=== PATIENT | female | born 1970 | race Caucasian/White ===

== ENCOUNTER 2017-03-18 21:00 | Emergency (ER) | payer MEDICAID ==
[~2017-03-18] VITALS: Ht 162.6 cm; Wt 80.7 kg
[2017-03-18 22:16] LABS: BASOPHIL % 0.5 % (0-2); PLATELET COUNT 205 x10^3mcL (130-400)
[2017-03-18 22:18] LABS: CARBON DIOXIDE 25.1 mmol/L (21-32); CHLORIDE SERUM 103 mmol/L (98-107); CREATININE SERUM 0.8 mg/dL (0.6-1.0); GFR1 > 60 mL/min; GLUCOSE SERUM 120 mg/dL (74-106); POTASSIUM SERUM 3.5 mmol/L (3.5-5.1); SODIUM SERUM 141 mmol/L (136-145)
[2017-03-18 22:23] LABS: RED CELL DISTRIBUTION WIDTH 22.8 % (11.5-14.5)
[2017-03-18 22:35] LABS: ALBUMIN 3.9 g/dL (3.4-5.0); TOTAL PROTEIN, SERUM 7.5 g/dL (6.4-8.2)
[2017-03-18 22:36] LABS: ALKALINE PHOSPHATASE 30 U/L (46-116); ALT/SGPT 49 U/L (14-59); AMYLASE 21 U/L (25-115); AST/SGOT 30 U/L (15-37); BILIRUBIN TOTAL 0.2 mg/dL (0.20-1.00); LIPASE 73 IU/L (73-393)
[2017-03-18 23:12] LABS: ovalocyte/elliptocyte 1+; rbc morphology (normal/abnorm) ABNORMAL (NORMAL)
[2017-03-19 00:18] VITALS: BP 143/71
[2017-03-19 00:50] LABS: UA SPECIFIC GRAVITY >=1.030 (1.005-1.035); microscopic required? YES; urine erythrocyte 2+ (NEGATIVE)
[2017-03-20] MEDS ORDERED: ZESTRIL5 MG (05:17)
[2017-03-20] MEDS ORDERED: FERROUS SULFAT325 M2 PO (14:14)
== END 2017-03-19 00:18 | disposition home or self-care (01) ==
LOC: ED 21:00
PROVIDERS: Emergency Medicine
DX: R10.13 Epigastric pain (principal); I10 Essential (primary) hypertension; M79.605 Pain in left leg; M79.604 Pain in right leg; R11.2 Nausea with vomiting, unspecified; R50.9 Fever, unspecified; R05 Cough; R51 Headache
CPT/HCPCS: 83880; 87804; J1885; J2270; J2405; Q0092

== ENCOUNTER 2017-03-20 03:31 | Inpatient (IN) | payer MEDICAID ==
[~2017-03-20] VITALS: Ht 165.1 cm; Wt 82.6 kg
[2017-03-20 04:13] LABS: BASOPHIL % 0.4 % (0-2)
[2017-03-20 04:18] LABS: PLATELET COUNT 115 x10^3mcL (130-400); RED CELL DISTRIBUTION WIDTH 21.6 % (11.5-14.5)
[2017-03-20 04:22] LABS: CALCIUM 8.6 mg/dL (8.5-10.1); CHLORIDE SERUM 105 mmol/L (98-107); CREATININE SERUM 0.7 mg/dL (0.6-1.0); GFR1 > 60 mL/min; GLUCOSE SERUM 129 mg/dL (74-106); POTASSIUM SERUM 3.6 mmol/L (3.5-5.1); SODIUM SERUM 140 mmol/L (136-145)
[2017-03-20 04:27] LABS: ALBUMIN 3.5 g/dL (3.4-5.0); ALKALINE PHOSPHATASE 63 U/L (46-116); ALT/SGPT 48 U/L (14-59); AMYLASE 25 U/L (25-115); AST/SGOT 28 U/L (15-37); BILIRUBIN TOTAL 0.3 mg/dL (0.20-1.00); LIPASE 95 IU/L (73-393); TOTAL PROTEIN, SERUM 7.1 g/dL (6.4-8.2)
[2017-03-20 04:33] LABS: ovalocyte/elliptocyte 1+; rbc morphology (normal/abnorm) ABNORMAL (NORMAL)
[2017-03-20] MEDS ORDERED: ZESTRIL5 MG (05:17)
[2017-03-20 07:05] LABS: PHOSPHOROUS 2.6 mg/dL (2.5-4.9)
[2017-03-20 07:13] LABS: T3 TOTAL 1.21 ng/mL
[2017-03-20 07:17] LABS: FREE T4 1.02 ng/dL (0.76-1.46); FREE THYROXINE INDEX 2.4 ug/dL (1.4-4.5); T4(THYROXINE) 7.9 ug/dL (4.7-13.3)
[2017-03-20 08:17] LABS: AMPHETAMINE QUAL UR NONE DETECTED (NEG <=1000)
[2017-03-20 09:16] VITALS: BP 143/69
[2017-03-20 11:20] VITALS: BP 146/72
[2017-03-20 12:31] VITALS: BP 141/69
[2017-03-20 13:03] LABS: UA SPECIFIC GRAVITY 1.025 (1.005-1.035); microscopic required? YES; urine erythrocyte NEGATIVE (NEGATIVE)
[2017-03-20] MEDS ORDERED: FERROUS SULFAT325 M2 PO (14:14)
[2017-03-20 17:11] VITALS: BP 158/78
[2017-03-20 22:13] VITALS: BP 150/79
[2017-03-21 05:51] VITALS: BP 152/70
[2017-03-21 06:08] LABS: BASOPHIL % 0.4 % (0-2)
[2017-03-21 06:35] LABS: CALCIUM 8.5 mg/dL (8.5-10.1); CARBON DIOXIDE 28.5 mmol/L (21-32); CHLORIDE SERUM 105 mmol/L (98-107); CREATININE SERUM 0.5 mg/dL (0.6-1.0); GFR1 > 60 mL/min; GLUCOSE SERUM 108 mg/dL (74-106); POTASSIUM SERUM 3.1 mmol/L (3.5-5.1); SODIUM SERUM 142 mmol/L (136-145)
[2017-03-21 08:00] LABS: PLATELET COUNT 58 x10^3mcL (130-400); RED CELL DISTRIBUTION WIDTH 21.4 % (11.5-14.5)
[2017-03-21 09:37] VITALS: BP 118/76
[2017-03-21 11:20] VITALS: Ht 165.1 cm; Wt 82.6 kg
[2017-03-21] MEDS ORDERED: RANITIDINE HYD PO (12:41)
[2017-03-21 12:50] VITALS: BP 162/78
[2017-03-21 13:09] VITALS: BP 162/78
[2017-03-21] MEDS ORDERED: AMITRIPTYLINE H25 M1 PO ×2 (13:21→13:22)
[2017-03-21 17:07] VITALS: BP 156/78
[2017-03-21] MEDS ORDERED: CARAFATE1 GM/10 ML PO (18:15)
== END 2017-03-21 18:15 | disposition home or self-care (01) | DRG 241 ==
LOC: ED 03:31 → DU 05:46
PROVIDERS: Emergency Medicine; Family Medicine; Internal Medicine Gastroenterology
PROC: 0DB78ZX Excision of Stomach, Pylorus, Via Natural or Artificial Opening Endoscopic, Diagnostic (ICD-10-PCS; principal; 2017-03-21 08:00)
PROC: 0DBH8ZX Excision of Cecum, Via Natural or Artificial Opening Endoscopic, Diagnostic (ICD-10-PCS; 2017-03-21 08:00)
DX: K29.70 Gastritis, unspecified, without bleeding (principal); N17.0 Acute kidney failure with tubular necrosis; K20.9 Esophagitis, unspecified; E78.5 Hyperlipidemia, unspecified; D50.9 Iron deficiency anemia, unspecified; Z88.8 Allergy status to other drugs, medicaments and biological substances; I10 Essential (primary) hypertension; D25.9 Leiomyoma of uterus, unspecified; N93.9 Abnormal uterine and vaginal bleeding, unspecified
CPT/HCPCS: 43235; 45378; 83880; 84439; J1200; J1610; J2250; J2270; J2310; J2405; J3010; J3490; J7030; Q0092; Q0169

== ENCOUNTER 2017-04-10 15:40 | Emergency (ER) | payer MEDICAID ==
[~2017-04-10] VITALS: Ht 162.6 cm; Wt 79.4 kg
[~2017-04-10 15:40] MED LIST: AMITRIPTYLINE H25 M1 PO; CARAFATE1 GM/10 ML PO; FERROUS SULFAT325 M2 PO; RANITIDINE HYD PO; ZESTRIL5 MG
[2017-04-10 17:19] LABS: BASOPHIL % 0.4 % (0-2); PLATELET COUNT 175 x10^3mcL (130-400); RED CELL DISTRIBUTION WIDTH 14.3 % (11.5-14.5)
[2017-04-10 17:34] LABS: microscopic required? YES; urine erythrocyte 2+ (NEGATIVE)
[2017-04-10 18:55] VITALS: BP 144/84
== END 2017-04-10 18:56 | disposition home or self-care (01) ==
LOC: ED 15:40
PROVIDERS: Emergency Medicine
DX: N93.9 Abnormal uterine and vaginal bleeding, unspecified (principal); N93.8 Other specified abnormal uterine and vaginal bleeding; D25.9 Leiomyoma of uterus, unspecified; I10 Essential (primary) hypertension; Z88.5 Allergy status to narcotic agent; Z88.6 Allergy status to analgesic agent
CPT/HCPCS: J1885

== ENCOUNTER 2017-07-31 17:50 | Emergency (ER) | payer MEDICAID ==
[~2017-07-31] VITALS: Ht 162.6 cm; Wt 81.3 kg
[2017-07-31 18:10] VITALS: BP 163/76; Ht 162.6 cm; Wt 81.3 kg
== END 2017-07-31 18:50 | disposition left against medical advice (07) ==
LOC: ED 17:50
DX: Z53.21 Procedure and treatment not carried out due to patient leaving prior to being seen by health care provider (principal)

== ENCOUNTER 2017-08-01 15:19 | Emergency (ER) | payer MEDICAID ==
[~2017-08-01] VITALS: Ht 162.6 cm; Wt 80.3 kg
[2017-08-01 15:39] VITALS: BP 166/97; Ht 162.6 cm; Wt 80.3 kg
== END 2017-08-01 16:12 | disposition home or self-care (01) ==
LOC: ED 15:19
DX: H60.8X2 Other otitis externa, left ear (principal); G50.0 Trigeminal neuralgia; I10 Essential (primary) hypertension; Z88.6 Allergy status to analgesic agent; Z88.5 Allergy status to narcotic agent

== ENCOUNTER 2018-05-19 17:09 | Inpatient (IN) | payer MEDICAID ==
[~2018-05-19] VITALS: Ht 167.6 cm; Wt 81.2 kg
[~2018-05-19 17:09] MED LIST changes: -ZESTRIL5 MG
[2018-05-19 17:14] VITALS: Ht 167.6 cm; Wt 81.2 kg
[2018-05-19 17:52] LABS: BASOPHIL % 0.5 % (0-2); PLATELET COUNT 268 x10^3mcL (130-400)
[2018-05-19 17:54] LABS: RED CELL DISTRIBUTION WIDTH 18.6 % (11.5-14.5)
[2018-05-19 18:01] LABS: CALCIUM 9.1 mg/dL (8.5-10.1); CARBON DIOXIDE 27.5 mmol/L (21-32); CHLORIDE SERUM 99 mmol/L (98-107); CREATININE SERUM 0.7 mg/dL (0.6-1.0); GFR1 > 60 mL/min; GLUCOSE SERUM 134 mg/dL (74-106); POTASSIUM SERUM 3.7 mmol/L (3.5-5.1); SODIUM SERUM 136 mmol/L (136-145)
[2018-05-19 18:06] LABS: ALBUMIN 3.7 g/dL (3.4-5.0); ALKALINE PHOSPHATASE 64 U/L (46-116); ALT/SGPT 49 U/L (14-59); AST/SGOT 34 U/L (15-37); BILIRUBIN TOTAL 0.38 mg/dL (0.20-1.00); TOTAL PROTEIN, SERUM 7.7 g/dL (6.4-8.2)
[2018-05-19 18:28] LABS: rbc morphology (normal/abnorm) ABNORMAL (NORMAL)
[2018-05-19 18:30] LABS: ovalocyte/elliptocyte 1+
[2018-05-19 18:55] LABS: UA SPECIFIC GRAVITY 1.025 (1.005-1.035); microscopic required? YES; urine erythrocyte 3+ (NEGATIVE)
[2018-05-19 18:56] LABS: MAGNESIUM 1.8 mg/dL (1.8-2.4); PHOSPHOROUS 2.2 mg/dL (2.5-4.9)
[2018-05-19 19:03] LABS: AMPHETAMINE QUAL UR NONE DETECTED (See below)
[2018-05-19 19:04] LABS: T3 TOTAL 1.12 ng/mL
[2018-05-19 19:07] LABS: FREE T4 1.02 ng/dL (0.76-1.46); FREE THYROXINE INDEX 3.4 ug/dL (1.4-4.5); T4(THYROXINE) 9.5 ug/dL (4.7-13.3)
[2018-05-19 19:44] VITALS: BP 135/58
[2018-05-20 05:47] VITALS: BP 120/52
[2018-05-20 06:39] LABS: BASOPHIL % 0.7 % (0-2); PLATELET COUNT 238 x10^3mcL (130-400)
[2018-05-20 07:22] VITALS: BP 119/52
[2018-05-20 07:28] LABS: CALCIUM 8.6 mg/dL (8.5-10.1); CHLORIDE SERUM 104 mmol/L (98-107); CREATININE SERUM 0.6 mg/dL (0.6-1.0); GFR1 > 60 mL/min; GLUCOSE SERUM 97 mg/dL (74-106); MAGNESIUM 2.1 mg/dL (1.8-2.4); POTASSIUM SERUM 4.3 mmol/L (3.5-5.1); SODIUM SERUM 140 mmol/L (136-145)
[2018-05-20 12:35] VITALS: BP 108/45
[2018-05-20 14:01] VITALS: BP 170/61
[2018-05-20 15:12] VITALS: BP 137/71
[2018-05-20 21:28] VITALS: BP 133/69
[2018-05-21 06:02] VITALS: BP 114/50
[2018-05-21 06:24] LABS: BASOPHIL % 0.6 % (0-2); PLATELET COUNT 156 x10^3mcL (130-400)
[2018-05-21 06:53] LABS: RED CELL DISTRIBUTION WIDTH 18.7 % (11.5-14.5)
[2018-05-21 06:54] LABS: rbc morphology (normal/abnorm) ABNORMAL (NORMAL)
[2018-05-21 06:56] LABS: CALCIUM 8.5 mg/dL (8.5-10.1); CARBON DIOXIDE 27.7 mmol/L (21-32); CHLORIDE SERUM 106 mmol/L (98-107); CREATININE SERUM 0.5 mg/dL (0.6-1.0); GFR1 > 60 mL/min; GLUCOSE SERUM 96 mg/dL (74-106); PHOSPHOROUS 3.1 mg/dL (2.5-4.9); POTASSIUM SERUM 3.9 mmol/L (3.5-5.1); SODIUM SERUM 142 mmol/L (136-145)
[2018-05-21 20:22] VITALS: BP 141/67
[2018-05-22 05:15] VITALS: BP 142/69
[2018-05-22 13:32] VITALS: BP 158/77
[2018-05-22] MEDS ORDERED: ZES20 PO (13:49)
[2018-05-22 17:22] VITALS: BP 181/85
[2018-05-22 21:16] VITALS: BP 139/69
[2018-05-23 06:02] VITALS: BP 152/77
[2018-05-23 06:26] LABS: PLATELET COUNT 145 x10^3mcL (130-400)
[2018-05-23 06:40] LABS: CALCIUM 8.3 mg/dL (8.5-10.1); CARBON DIOXIDE 29.2 mmol/L (21-32); CHLORIDE SERUM 105 mmol/L (98-107); CREATININE SERUM 0.6 mg/dL (0.6-1.0); GFR1 > 60 mL/min; GLUCOSE SERUM 94 mg/dL (74-106); POTASSIUM SERUM 3.8 mmol/L (3.5-5.1); SODIUM SERUM 140 mmol/L (136-145)
[2018-05-23 06:49] LABS: RED CELL DISTRIBUTION WIDTH 18.3 % (11.5-14.5)
[2018-05-23 09:08] VITALS: BP 171/101
[2018-05-23 10:13] VITALS: BP 154/84
[2018-05-23 13:09] VITALS: BP 148/79
[2018-05-23 14:09] VITALS: BP 148/79
[2018-05-23] MEDS ORDERED: ZESTRIL5 MG (14:22)
== END 2018-05-23 14:49 | disposition home or self-care (01) | DRG 517 ==
LOC: ED 17:09 → DU 18:18
PROVIDERS: Emergency Medicine; Internal Medicine; Obstetrics & Gynecology; ADMIT Family Medicine
PROC: 0UDB7ZX Extraction of Endometrium, Via Natural or Artificial Opening, Diagnostic (ICD-10-PCS; principal; 2018-05-22 07:30)
DX: N92.0 Excessive and frequent menstruation with regular cycle (principal); G93.41 Metabolic encephalopathy; G43.909 Migraine, unspecified, not intractable, without status migrainosus; D25.0 Submucous leiomyoma of uterus; D50.0 Iron deficiency anemia secondary to blood loss (chronic); E83.39 Other disorders of phosphorus metabolism; K29.70 Gastritis, unspecified, without bleeding; E78.5 Hyperlipidemia, unspecified; F41.9 Anxiety disorder, unspecified; I10 Essential (primary) hypertension; D72.829 Elevated white blood cell count, unspecified; Z68.30 Body mass index [BMI] 30.0-30.9, adult
CPT/HCPCS: 83880; 84439; A9500; C1758; J0360; J1170; J1885; J2060; J2250; J2270; J2405; J2704; J2785; J3010; J3490; J7030; J7120; J8597; Q0092; Q9967

== ENCOUNTER 2018-11-29 18:46 | Emergency (ER) | payer MEDICAID ==
[~2018-11-29] VITALS: Ht 162.6 cm; Wt 85.3 kg
[~2018-11-29 18:46] MED LIST changes: +ZES20 PO; +ZESTRIL5 MG
[2018-11-29 18:58] VITALS: Ht 162.6 cm; Wt 85.3 kg
[2018-11-29 20:56] LABS: BASOPHIL % 0.6 % (0-2); PLATELET COUNT 295 x10^3mcL (130-400)
[2018-11-29 21:01] LABS: RED CELL DISTRIBUTION WIDTH 20.5 % (11.5-14.5)
[2018-11-29 21:02] LABS: CALCIUM 8.6 mg/dL (8.5-10.1); CARBON DIOXIDE 28.1 mmol/L (21-32); CHLORIDE SERUM 106 mmol/L (98-107); CREATININE SERUM 0.7 mg/dL (0.6-1.0); GFR1 > 60 mL/min; GLUCOSE SERUM 97 mg/dL (74-106); POTASSIUM SERUM 3.7 mmol/L (3.5-5.1); SODIUM SERUM 142 mmol/L (136-145)
[2018-11-29 21:07] LABS: ALBUMIN 3.4 g/dL (3.4-5.0); ALKALINE PHOSPHATASE 78 U/L (46-116); ALT/SGPT 29 U/L (14-59); AST/SGOT 14 U/L (15-37); BILIRUBIN TOTAL 0.2 mg/dL (0.20-1.00); TOTAL PROTEIN, SERUM 7.3 g/dL (6.4-8.2)
[2018-11-29 21:15] LABS: rbc morphology (normal/abnorm) ABNORMAL (NORMAL)
[2018-11-29 22:31] VITALS: BP 180/94
== END 2018-11-29 22:31 | disposition home or self-care (01) ==
LOC: ED 18:46
PROVIDERS: Student in an Organized Health Care Education/Training Program
DX: R07.89 Other chest pain (principal); D64.9 Anemia, unspecified; I10 Essential (primary) hypertension; Z88.8 Allergy status to other drugs, medicaments and biological substances
CPT/HCPCS: 36415; 83880; Q0092

== ENCOUNTER 2019-08-31 15:20 | Emergency (ER) | payer MEDICAID ==
[~2019-08-31] VITALS: Ht 162.6 cm; Wt 85.7 kg
[2019-08-31 15:34] VITALS: Ht 162.6 cm; Wt 85.7 kg
[2019-08-31 16:44] LABS: BASOPHIL % 1.4 % (0-2); PLATELET COUNT 223 x10^3mcL (130-400); RED CELL DISTRIBUTION WIDTH 13.9 % (11.5-14.5)
[2019-08-31 17:05] LABS: CALCIUM 8.6 mg/dL (8.5-10.1); CHLORIDE SERUM 103 mmol/L (98-107); CREATININE SERUM 0.7 mg/dL (0.6-1.0); GFR1 > 60 mL/min; GLUCOSE SERUM 90 mg/dL (74-106); POTASSIUM SERUM 3.5 mmol/L (3.5-5.1); SODIUM SERUM 142 mmol/L (136-145)
[2019-08-31 17:12] LABS: microscopic required? YES; urine erythrocyte 2+ (NEGATIVE)
[2019-08-31 17:25] LABS: ALBUMIN 3.7 g/dL (3.4-5.0); ALKALINE PHOSPHATASE 82 U/L (46-116); ALT/SGPT 178 U/L (14-59); AST/SGOT 135 U/L (15-37); BILIRUBIN TOTAL 0.2 mg/dL (0.20-1.00); LIPASE 70 IU/L (73-393); TOTAL PROTEIN, SERUM 7.4 g/dL (6.4-8.2)
[2019-08-31 17:26] LABS: CHOLESTEROL 204 mg/dL (<200); HDL CHOLESTEROL 34 mg/dL (40-60)
[2019-08-31 19:58] VITALS: BP 135/65
[2019-08-31 22:09] LABS: AMPHETAMINE QUAL UR NONE DETECTED (See below)
== END 2019-08-31 19:58 | disposition home or self-care (01) ==
LOC: ED 15:20
PROVIDERS: Emergency Medicine
DX: K82.8 Other specified diseases of gallbladder (principal); R74.0 Nonspecific elevation of levels of transaminase and lactic acid dehydrogenase [LDH]; I10 Essential (primary) hypertension; E66.9 Obesity, unspecified; Z68.32 Body mass index [BMI] 32.0-32.9, adult; Z20.828 Contact with and (suspected) exposure to other viral communicable diseases; Z98.890 Other specified postprocedural states; Z88.8 Allergy status to other drugs, medicaments and biological substances
CPT/HCPCS: 83880; J7030; Q0092; U0003-CS